=== PATIENT | female | born 1970 | race African-American/Black ===

== ENCOUNTER 2018-06-10 15:47 | Emergency (ER) | payer OTHER ==
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
[2018-06-10 15:54] VITALS: BP 141/79; PULSE 70; TEMP 99; BMI 38.4
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
== END 2018-06-10 16:12 | disposition home or self-care (01) ==
LOC: JERFT 15:47
DX: S16.1XXA Strain of muscle, fascia and tendon at neck level, initial encounter (principal); V43.52XA Car driver injured in collision with other type car in traffic accident, initial encounter; Y93.89 Activity, other specified; Y92.410 Unspecified street and highway as the place of occurrence of the external cause; J45.909 Unspecified asthma, uncomplicated
CPT/HCPCS: 99281-25

== ENCOUNTER 2019-04-01 10:10 | Day surgery (SDC) | payer OTHER ==
[2019-03-31 16:56] VITALS: BMI 42.4
--- NOTE | 2019-04-01 11:57 | HP ---
History & Physical Update - History History: No Change - Physical Physical: No Change - Assessment Assessment: No Change - Plan Plan: No Change (Agree with H&P from 03/31, for hysteroscopy and polypectomy)
[2019-04-01] MEDS ORDERED: DEXAMETHASONE SOD PHOSPHATE 4 MG/1 ML VIAL ONE (12:23)
[2019-04-01] MEDS ORDERED: KETOROLAC TROMETHAMINE 30 MG/1 ML VIAL ONE (12:23)
[2019-04-01] MEDS ORDERED: LIDOCAINE HCL/PF 2% SDV 5ML VIAL ONE (12:23)
[2019-04-01] MEDS ORDERED: MIDAZOLAM HCL 2 MG/2 ML SINGLE DOSE VIAL ONE (12:23)
[2019-04-01] MEDS ORDERED: PROPOFOL 20 ML ONE (12:23)
[2019-04-01] MEDS ORDERED: ACETAMINOPHEN 325 MG TABLET (FP) PO PRN (12:25)
[2019-04-01] MEDS ORDERED: LACTATED RINGERS SOLUTION 1,000 ML IV SCH ×2 (12:30→13:15)
[2019-04-01] MEDS ORDERED: ONDANSETRON 4 MG/2 ML VIAL IVPUSH PRN (13:15)
[2019-04-01] MEDS ORDERED: oxyCODONE HCL 5 MG TABLET PO PRN ×2 (13:15)
[2019-04-01 14:36] VITALS: TEMP 97.6
[2019-04-01 15:32] VITALS: BP 145/84; PULSE 71
--- NOTE | 2019-04-02 17:03 | PATH ---
Surgical Pathology Report Patient Name: KEYUR STANTON [facility]. Rec. #: [id number] /Age/Gender: 1970 (Age: 49) / F Account: [id number] Location: [facility] SURGICAL Taken: 04/01/2019 Received: 04/01/2019 Reported: 04/02/2019 Physicians: Katty Sung M.D. Specimen(s) Received A: ENDOMETRIAL POLYP B: ENDOMETRIAL CURETTINGS Clinical History Abnormal uterine bleeding, endometrial polyp Final Diagnosis A. ENDOMETRIAL POLYP, EXCISION: ENDOCERVICAL POLYP. SEPARATE ENDOMETRIAL POLYP. SEPARATE PROLIFERATIVE ENDOMETRIUM. B. ENDOMETRIAL CURETTINGS: FRAGMENTS OF ENDOMETRIAL POLYP. SEPARATE PROLIFERATIVE ENDOMETRIUM. SEPARATE ENDOCERVICAL TISSUE WITH FOCAL DILATED GLANDS AND SQUAMOUS EPITHELIUM WITH NO DIAGNOSTIC ABNORMALITIES. Electronically Signed Jennifer Montejo M.D. Gross Description A. Received in formalin labeled "endometrial polyp," is a 2.5 x 2.2 x 0.3 cm aggregate of red-brown soft tissue fragments. The formalin is filtered and the specimen is entirely submitted in one cassette. B. Received in formalin labeled "endometrial curettings," is a 3.4 x 3.0 x 0.3 cm aggregate of duarte red soft tissue fragments. The formalin is filtered and the specimen is entirely submitted in 2 cassettes. 04/01/2019 [facility]04/01/2019
--- NOTE | 2019-04-04 07:41 | OP ---
Operative Note - Note: Operative Date: 04/01/19 Pre-Operative Diagnosis: AUB, endometrial polyp Operation: hysteroscopy, D&C, polypectomy Findings: posterior intracavitary endometrial polyp Post-Operative Diagnosis: Same as Pre-op Surgeon: Katty Sung Appeals Specialist: Devendra Pace Anesthesiologist/AIRCRAFT POWERPLANT REPAIRER: Russell Mera Anesthesia: General Specimens Removed: endometrial curettings, endometrial polyp Estimated Blood Loss (mls): 5 Operative Report Dictated: Yes
--- NOTE | 2019-04-04 11:15 | OP ---
DATE OF OPERATION: 04/01/2019 PREOPERATIVE DIAGNOSES: Abnormal uterine bleeding and endometrial polyp. POSTOPERATIVE DIAGNOSES: Abnormal uterine bleeding and endometrial polyp. PROCEDURE: Hysteroscopy, dilatation and curettage, and polypectomy. SURGEON: Katty Sung DO ANESTHESIA: General by SHAHID Flor. ESTIMATED BLOOD LOSS: 5 mL. COMPLICATIONS: None. COUNT: Sponge, needle, and instrument count correct. DISPOSITION: Stable to PACU. BRIEF HISTORY AND PROCEDURE: Patient is a 49-year-old female who had been seen in the office with complaints of abnormal uterine bleeding. Upon ultrasound examination, was found to have an endometrial polyp. The patient was counseled on her options and elected to undergo hysteroscopic resection of the polyp. The patient was admitted to [facility] on April 01, 2019. Consents were reconfirmed. She was taken back to the operating room, placed in the dorsal lithotomy position, given general anesthesia, prepped and draped in the usual sterile fashion. A hard timeout was performed, and a speculum was placed inside the vagina. The anterior lip of the cervix was grasped with a tenaculum, and the cervix was dilated to accommodate a diagnostic hysteroscope which was advanced to the fundus of the uterus. Bilateral tubal ostia were noted. A posterior endometrial polyp was noted. Sharp curettage and suction curettage was completed in all 4 cash of the uterus until adequate uterine cry was completed. This was done until the entirety of the uterine polyp was removed. One final pass with the hysteroscope revealed no evidence of uterine perforation and complete resection of the endometrial polyp. All specimens were sent to Pathology for permanent evaluation. All instruments were removed from the vagina. Minimal bleeding was noted from the cervical os. The tenaculum site was noted to be bleeding, and a single interrupted 3-0 Vicryl suture was placed to achieve hemostasis. At this point, minimal bleeding was noted from the tenaculum sites. The patient was awoken from anesthesia. Sponge, needle, and instrument count was correct. The patient tolerated the procedure, in stable condition in the PACU after the procedure. KATTY SUNG DO /[id number]
== END 2019-04-01 15:15 | disposition home or self-care (01) ==
LOC: JASU-SURG 10:10
PROVIDERS: ATTEND Obstetrics & Gynecology
PROC: 0UJD8ZZ Inspection of Uterus and Cervix, Via Natural or Artificial Opening Endoscopic (ICD-10-PCS; 2019-04-01)
PROC: 0UB97ZX Excision of Uterus, Via Natural or Artificial Opening, Diagnostic (ICD-10-PCS; principal; 2019-04-01 11:30)
PROC: 0UDB7ZX Extraction of Endometrium, Via Natural or Artificial Opening, Diagnostic (ICD-10-PCS; 2019-04-01 11:30)
DX: N93.9 Abnormal uterine and vaginal bleeding, unspecified (principal); N84.0 Polyp of corpus uteri
CPT/HCPCS: 36415; 84702; 86850; 86900; 86901; 88305-TC; 94760

== ENCOUNTER 2020-11-28 07:30 | Inpatient (IN) | payer OTHER ==
[2020-11-23 15:05] VITALS: BMI 45.0
[~2020-11-28 07:30] MED LIST: ceFAZolin 2 GRAM PREMIX BAG IVPB ONE
[2020-11-28] MEDS ORDERED: PHENAZOPYRIDINE HCL 100 MG TABLET (FP) PO ONE (07:41)
[2020-11-28] MEDS ORDERED: ceFAZolin 2 GRAM PREMIX BAG IVPB ONE (12:30)
[2020-11-28] MEDS ORDERED: DOCUSATE SODIUM 100 MG CAPSULE (FP) PO PRN (14:36)
[2020-11-28] MEDS ORDERED: SIMETHICONE 80 MG TAB.CHEW (FP) PO PRN (14:36)
[2020-11-28] MEDS ORDERED: BISACODYL 5 MG TABLET.DR (FP) PO PRN (14:36)
[2020-11-28] MEDS ORDERED: IBUPROFEN 800 MG/8 ML IJ IVPB PRN (14:36)
[2020-11-28] MEDS ORDERED: oxyCODONE HCL 5 MG TABLET PO PRN ×2 (14:36)
[2020-11-28] MEDS ORDERED: ONDANSETRON 4 MG/2 ML VIAL IVPUSH PRN ×2 (14:36→14:43)
[2020-11-28] MEDS ORDERED: ACETAMINOPHEN 325 MG TABLET (FP) PO PRN (14:36)
[2020-11-28] MEDS ORDERED: HYDROmorphone HCL CARPU-JECT 2 MG/1 ML DISP.SYRIN IVPUSH PRN ×2 (14:44→14:46)
[2020-11-28] MEDS ORDERED: LACTATED RINGERS SOLUTION 1,000 ML IV SCH (14:45)
[2020-11-28] MEDS ORDERED: ALBUTEROL SO4 HFA INHALER IH PRN (14:49)
[2020-11-28] MEDS ORDERED: HYDROmorphone HCL CARPU-JECT 2 MG/1 ML DISP.SYRIN IVPUSH ONE (15:45)
[2020-11-28] MEDS ORDERED: ONDANSETRON 4 MG/2 ML VIAL IVPUSH ONE (16:07)
[2020-11-28] MEDS: CEFAZOLIN 1 GM/D5W 1 GM/50 ML BAG IVPB SCH (17:58)
[2020-11-29] MEDS: CEFAZOLIN 1 GM/D5W 1 GM/50 ML BAG IVPB SCH ×2 (01:54→09:45)
[2020-11-29 02:14] LABS: POTASSIUM 4.3 mmol/L (3.5-5.1)
[2020-11-29 02:16] LABS: BLOOD UREA NITROGEN 12.3 mg/dL (7-18)
[2020-11-29 02:20] LABS: CREATININE 0.9 mg/dL (0.55-1.3)
[2020-11-29 08:34] LABS: HEMATOCRIT 31.7 % (32.4-45.2); HEMOGLOBIN 10.7 GM/dL (10.7-15.3); MCH 27.3 pg (25.7-33.7); MCHC 33.6 g/dl (32.0-36.0); MEAN CELL VOLUME 81.4 fl (80-96); MEAN PLT VOLUME 8.2 fl (7.5-11.1); PLATELET COUNT 356 K/MM3 (134-434); RDW 14.6 % (11.6-15.6); WHITE BLOOD COUNT 11.3 K/mm3 (4.0-10.0)
[2020-11-29 09:09] LABS: HEMATOCRIT 28.8 % (32.4-45.2); HEMOGLOBIN 9.8 GM/dL (10.7-15.3); MCH 27.6 pg (25.7-33.7); MCHC 33.9 g/dl (32.0-36.0); MEAN CELL VOLUME 81.5 fl (80-96); MEAN PLT VOLUME 8.2 fl (7.5-11.1); PLATELET COUNT 347 K/MM3 (134-434); RBC 3.54 M/mm3 (3.60-5.2); RDW 14.7 % (11.6-15.6)
[2020-11-29 09:22] LABS: POTASSIUM 4.1 mmol/L (3.5-5.1)
[2020-11-29 09:23] LABS: BLOOD UREA NITROGEN 11.4 mg/dL (7-18); CALCIUM 8.9 mg/dL (8.5-10.1)
[2020-11-29 09:27] LABS: CREATININE 0.7 mg/dL (0.55-1.3)
[2020-11-29] MEDS ORDERED: PT OWN MED DRAWER 7, Y5N ONE (09:38)
[2020-11-29] MEDS ORDERED: LOSARTAN 50MG/HCTZ 12.5MG 1 TAB PO SCH (10:00)
[2020-11-29] MEDS ORDERED: ENOXAPARIN NA (PORCINE) 40 MG/0.4 ML DISP.SYRIN SQ SCH (10:00)
[2020-11-29] MEDS ORDERED: ACETAMINOPHEN 325 MG TABLET (FP) PO PRN (10:21)
[2020-11-29] MEDS ORDERED: IBUPROFEN 600 MG TABLET (FP) PO PRN (10:21)
[2020-11-29 14:20] VITALS: BP 126/74; PULSE 76; TEMP 98.8
== END 2020-11-29 17:15 | disposition home or self-care (01) | DRG 742 ==
LOC: J6S 17:15
PROVIDERS: ADMIT Obstetrics & Gynecology; ATTEND Obstetrics & Gynecology
PROC: 0UT70ZZ Resection of Bilateral Fallopian Tubes, Open Approach (ICD-10-PCS; 2020-11-28)
PROC: 0UT90ZZ Resection of Uterus, Open Approach (ICD-10-PCS; principal; 2020-11-28 09:00)
DX: D25.9 Leiomyoma of uterus, unspecified (principal); Z68.42 Body mass index [BMI] 45.0-49.9, adult; J45.909 Unspecified asthma, uncomplicated; E66.01 Morbid (severe) obesity due to excess calories; N92.1 Excessive and frequent menstruation with irregular cycle
CPT/HCPCS: 36415; 80048; 84703; 85027; 86850; 86900; 86901; 88302-TC; 88307-TC; 94760

== ENCOUNTER 2023-09-07 12:15 | Emergency (ER) | payer BC ==
[2023-09-07 12:25] VITALS: BP 147/84; PULSE 89; RESP 20; TEMP 100; BMI 43.2
[2023-09-07] MEDS ORDERED: ALBUTEROL SO4 2.5/IPRATROPIUM 0.5 INH SOL 3 ML VIAL.NEB. NEB ONE ×2 (12:32→12:33)
[2023-09-07] MEDS ORDERED: DEXAMETHASONE SOD PHOSPHATE 10 MG/1 ML VIAL IVPUSH ONE (12:43)
[2023-09-07 13:22] LABS: BASO % 0.4 % (0-2.0); EOS % 1.4 % (0-4.5); HEMATOCRIT 37.6 % (32.4-45.2); HEMOGLOBIN 12.6 GM/dL (10.7-15.3); MCH 27.4 pg (25.7-33.7); MCHC 33.6 g/dl (32.0-36.0); MEAN CELL VOLUME 81.7 fl (80-96); MEAN PLT VOLUME 7.8 fl (7.5-11.1); MONO % 16.5 % (3.8-10.2); NEUT % 65.7 % (42.8-82.8); PLATELET COUNT 268 10^3/uL (134-434); WHITE BLOOD COUNT 4.1 K/mm3 (4.0-10.0)
[2023-09-07] MEDS ORDERED: DEXAMETHASONE SOD PHOSPHATE 10 MG/1 ML VIAL ONE (13:28)
[2023-09-07 13:44] LABS: POTASSIUM 3.9 mmol/L (3.5-5.1)
[2023-09-07 13:46] LABS: ALBUMIN 3.5 g/dl (3.4-5.0); BLOOD UREA NITROGEN 10.1 mg/dL (7-18); CALCIUM 8.7 mg/dL (8.5-10.1)
[2023-09-07 13:51] LABS: BILIRUBIN,TOTAL 0.8 mg/dL (0.2-1); TOT PROT 7.6 g/dl (6.4-8.2)
== END 2023-09-07 15:06 | disposition home or self-care (01) ==
LOC: JER 12:15
PROC: 3E033GC Introduction of Other Therapeutic Substance into Peripheral Vein, Percutaneous Approach (ICD-10-PCS; principal; 2023-09-07)
PROC: 3E0F7GC Introduction of Other Therapeutic Substance into Respiratory Tract, Via Natural or Artificial Opening (ICD-10-PCS; 2023-09-07)
DX: R07.89 Other chest pain (principal); R05.9 Cough, unspecified; J45.901 Unspecified asthma with (acute) exacerbation; J10.1 Influenza due to other identified influenza virus with other respiratory manifestations; Z20.822 Contact with and (suspected) exposure to COVID-19
CPT/HCPCS: 0241U-QW; 36415; 71046-TC-FY; 80053; 85025; 99284-25; J1100